=== PATIENT | male | born 1975 | race Caucasian/White ===

== ENCOUNTER → 2017-12-10 | Outpatient (CLI) | payer MEDICARE, MEDICAID | LOC: M RAD 08:30 | DX: M25.475 Effusion, left foot (principal) | CPT/HCPCS: 78315 ==

== ENCOUNTER → 2017-12-23 | Outpatient (REF) | payer MEDICARE, MEDICAID ==
[2017-12-23 16:10] LABS: ALBUMIN 4.2 GM/DL (3.2-5.2); ALBUMIN/GLOBULIN RATIO 1.11 (1.00-1.93); ALKALINE PHOSPHATASE 127 U/L (45-117); ALT/SGPT 22 U/L (12-78); ANION GAP 6 MEQ/L (8-16); AST/SGOT 15 U/L (7-37); BILIRUBIN,TOTAL 0.4 MG/DL (0.2-1.0); BLOOD UREA NITROGEN 15 MG/DL (7-18); C REACTIVE PROTEIN QUANTITATIV 1.27 MG/DL (0.00-0.30); CALCIUM LEVEL 9.3 MG/DL (8.5-10.1); CARBON DIOXIDE LEVEL 30 MEQ/L (21-32); CHLORIDE LEVEL 102 MEQ/L (98-107); CREATININE FOR GFR 0.81 MG/DL (0.70-1.30); GLOMERULAR FILTRATION RATE > 60.0 (>60); GLUCOSE, FASTING 108 MG/DL (70-100); POTASSIUM SERUM 4.2 MEQ/L (3.5-5.1); SODIUM LEVEL 138 MEQ/L (136-145)
[2017-12-23 18:53] LABS: BASO % 0.1 % (0.0-1.0); EOS # 0.2 10^3/uL (0.0-0.50); EOS % 2.6 % (0.0-3.0); HEMATOCRIT 41.1 % (42.0-52.0); HEMOGLOBIN 13.6 g/dl (13.5-17.5); IMMATURE GRANULOCYTE % 0.5 % (0-3.0); LYMPH # 1.9 10^3/uL (1.5-4.5); LYMPH % 21.1 % (24.0-44.0); MEAN CORPUSCULAR HGB CONC 33.1 g/dl (32.0-36.5); MEAN CORPUSCULAR VOLUME 81.5 fl (80.0-96.0); MONO # 0.5 10^3/uL (0.0-0.8); MONO % 5.4 % (0.0-5.0); NEUTROPHILS # 6.4 10^3/uL (1.8-7.7); NEUTROPHILS % 70.3 % (36.0-66.0); PLATELET COUNT, AUTOMATED 290 10^3/uL (150-450); RED BLOOD COUNT 5.04 10^6/uL (4.30-6.10); RED CELL DISTRIBUTION WIDTH 13.2 % (11.5-14.5); WHITE BLOOD COUNT 9.1 10^3/uL (4.0-10.0)
[2017-12-23 19:46] LABS: ERYTHROCYTE SEDIMENTATION RATE 20 mm/hr (0-15)
[2017-12-26 00:06] LABS: Lyme Disease IgG/IgM Antibodie <0.91 ISR (0.00-0.90); Lyme Disease IgM Ab Quantitati <0.80 index (0.00-0.79)
== END ==
LOC: M SFHCPLAZ 12:23
DX: M86.671 Other chronic osteomyelitis, right ankle and foot (principal)
CPT/HCPCS: 80053

== ENCOUNTER → 2018-01-02 | Outpatient (CLI) | payer MEDICARE, MEDICAID | LOC: M RAD 12:38 | DX: M25.475 Effusion, left foot (principal); S92.252A Displaced fracture of navicular [scaphoid] of left foot, initial encounter for closed fracture; S92.212A Displaced fracture of cuboid bone of left foot, initial encounter for closed fracture; M77.32 Calcaneal spur, left foot; X58.XXXA Exposure to other specified factors, initial encounter; Y92.9 Unspecified place or not applicable | CPT/HCPCS: 73700 ==

== ENCOUNTER 2023-02-24 17:27 | Inpatient (IN) | payer MEDICAID, MEDICARE, OTHER ==
[~2023-02-24] VITALS: Ht 180.3 cm; Wt 105.6 kg
[2023-02-24] MEDS ORDERED: DOXY100T27 PO (17:41)
[2023-02-24] MEDS ORDERED: OMEP40CA5 PO (17:41)
[2023-02-24] MEDS ORDERED: GABA-282 PO (17:41)
[2023-02-24] MEDS ORDERED: BASA100I INJ (17:41)
[2023-02-24] MEDS ORDERED: CEFP200T PO (17:41)
[2023-02-24] MEDS ORDERED: OXYC10TA12 PO (17:41)
[2023-02-24] MEDS ORDERED: LISI40TA4 PO (17:41)
[2023-02-24] MEDS ORDERED: HYDR-4517 PO (17:41)
[2023-02-24] MEDS ORDERED: METF500T13 PO (17:41)
[2023-02-24] MEDS ORDERED: ACETAMINOPHEN 325 MG TAB PO ONE (17:55)
[2023-02-24 18:22] LABS: BASO % 0.1 % (0.0-1.0); EOS % 0.5 % (0.0-3.0); HEMATOCRIT 31.5 % (42.0-52.0); HEMOGLOBIN 10.4 g/dl (13.5-17.5); LYMPH # 0.4 10^3/uL (1.5-5.0); LYMPH % 5.5 % (24.0-44.0); MEAN CORPUSCULAR HEMOGLOBIN 26.6 pg (27.0-33.0); MEAN CORPUSCULAR VOLUME 80.6 fl (80.0-96.0); MONO # 0.2 10^3/uL (0.0-0.8); NEUTROPHILS # 7.2 10^3/uL (1.5-8.5); NEUTROPHILS % 90.3 % (36.0-66.0); PLATELET COUNT, AUTOMATED 206 10^3/uL (150-450); RED BLOOD COUNT 3.91 10^6/uL (4.30-6.10)
[2023-02-24 18:45] LABS: ALBUMIN 2.3 G/DL (3.2-5.2); ALKALINE PHOSPHATASE 79 U/L (46-116); ALT/SGPT < 9 U/L (7.0-40); AST/SGOT 12 U/L (<34); BILIRUBIN,TOTAL 0.6 MG/DL (0.3-1.2); BLOOD UREA NITROGEN 8 MG/DL (9-23); CALCIUM LEVEL 8.3 MG/DL (8.5-10.1); CARBON DIOXIDE LEVEL 26 MMOL/L (20-31); CHLORIDE LEVEL 99 MMOL/L (98-107); CREATININE FOR GFR 0.72 MG/DL (0.70-1.30); GLOMERULAR FILTRATION RATE > 60.0 (>60); GLUCOSE, FASTING 138 MG/DL (60-100); POTASSIUM SERUM 3.2 MMOL/L (3.5-5.1); SODIUM LEVEL 134 MMOL/L (136-145)
[2023-02-24 18:58] LABS: RSV AMPLIFICATION NEGATIVE (NEGATIVE)
[2023-02-24 19:10] LABS: ERYTHROCYTE SEDIMENTATION RATE 71 mm/hr (0-15)
[2023-02-24] MEDS ORDERED: NS 3,000 ML in IV 1 EA IV ONE (19:50)
[2023-02-24] MEDS ORDERED: IBUPROFEN 800 MG TAB PO ONE (19:50)
[2023-02-24] MEDS ORDERED: cefTRIAXone SOD 1 GM in D5W MINI-BAG PLUS 50 ML IV ONE (19:50)
[2023-02-24] MEDS ORDERED: GABAPENTIN 300 MG CAP PO ONE (20:00)
[2023-02-24] MEDS ORDERED: MORPHINE 4 MG/ML 1ML VIAL IV ONE (20:00)
[2023-02-24] MEDS ORDERED: VANCOMYCIN HCL 2,000 MG in D5W 500 ML IV ONE (20:20)
[2023-02-24] MEDS ORDERED: VANCOMYCIN HCL 1,000 MG, VIAL MATE ADAPTER 1 EACH in D5W 250 ML IV ONE ×2 (21:00→22:00)
[2023-02-24] MEDS ORDERED: HOME MED LIST COMPLETE! XX SCH (21:10)
[2023-02-24] MEDS ORDERED: NS 1,000 ML IV ONE (23:25)
[2023-02-24] MEDS ORDERED: GLUCOSE 4GM CHEW TABLET PO PRN (23:30)
[2023-02-24] MEDS ORDERED: ACETAMINOPHEN TAB 650MG DOSE (2X325MG) PO PRN (23:30)
[2023-02-24] MEDS ORDERED: ONDANSETRON 4MG ORAL DISINTEGRATING TAB PO PRN (23:30)
[2023-02-24] MEDS ORDERED: GLUCAGON INJ 1MG VIAL SC PRN (23:30)
[2023-02-24] MEDS ORDERED: DEXTROSE 50% 50ML SYRINGE IV PRN (23:30)
[2023-02-25] MEDS ORDERED: POTASSIUM CHLORIDE 10% LIQ 20MEQ/15ML UDC PO ONE
[2023-02-25] MEDS ORDERED: NS 1,000 ML IV ONE (00:25)
[2023-02-25] MEDS ORDERED: LORazepam 2 MG TAB PO PRN (01:40)
[2023-02-25] MEDS ORDERED: PIPERACILLIN/TAZOBACTAM SOD 4.5 GM in D5W MINI-BAG PLUS 50 ML IV SCH (02:00)
[2023-02-25] MEDS: PIPERACILLIN/TAZOBACTAM SOD 3.375 GM in D5W MINI-BAG PLUS 50 ML IV SCH ×4 (02:38→20:01)
[2023-02-25] MEDS: THIAMINE 100 MG TAB PO SCH ×3 (02:38→20:00)
[2023-02-25] MEDS: NORCO, ANEXSIA 5/325MG TABLET (HYDROcodone/ACETAMINOPHEN) PO PRN ×3 (02:41→22:59)
[2023-02-25] MEDS: VANCOMYCIN HCL 1,000 MG, VIAL MATE ADAPTER 1 EACH in NS 250 ML IV SCH ×3 (05:32→21:27)
[2023-02-25] MEDS: HEPARIN SOD (PORCINE) 5000UNITS/ML 1ML VIAL/SYRINGE SC SCH ×3 (06:41→21:23)
[2023-02-25 07:23] LABS: BLOOD UREA NITROGEN 8 MG/DL (9-23); CALCIUM LEVEL 7.8 MG/DL (8.5-10.1); CARBON DIOXIDE LEVEL 21 MMOL/L (20-31); CHLORIDE LEVEL 106 MMOL/L (98-107); CREATININE FOR GFR 0.63 MG/DL (0.70-1.30); GLOMERULAR FILTRATION RATE > 60.0 (>60); GLUCOSE, FASTING 82 MG/DL (60-100); POTASSIUM SERUM 3.9 MMOL/L (3.5-5.1); SODIUM LEVEL 139 MMOL/L (136-145)
[2023-02-25] MEDS: INSULIN LISPRO (NovoLOG) PER UNIT SC SCH ×3 (07:30→17:30)
[2023-02-25] MEDS: MULTIVITAMINS/MINERALS THERAP 1 TAB PO SCH (07:54)
[2023-02-25] MEDS: LEVEMIR (INSULIN DETEMIR) 1 UNITS/0.01ML SC SCH (07:54)
[2023-02-25] MEDS: OMEPRAZOLE 20MG CAP PO SCH (07:54)
[2023-02-25] MEDS: GABAPENTIN 300 MG CAP PO SCH ×3 (07:54→20:00)
[2023-02-25] MEDS: FOLIC ACID 1MG TAB PO SCH (07:54)
[2023-02-25 15:56] VITALS: BP 128/87; TEMP 97.4; O2SAT 100
[2023-02-25] MEDS ORDERED: KETOROLAC 30 MG/ML 1ML VIAL IV ONE (16:25)
[2023-02-25] MEDS ORDERED: NORCO, ANEXSIA 5/325MG TABLET (HYDROcodone/ACETAMINOPHEN) PO PRN (16:25)
[2023-02-25] MEDS ORDERED: NALOXONE INJ 0.4MG/1ML VIAL IV PRN (16:25)
[2023-02-25] MEDS ORDERED: SENOKOT S TAB PO PRN (16:25)
[2023-02-25] MEDS ORDERED: INSULIN LISPRO (NovoLOG) PER UNIT SC SCH (21:00)
[2023-02-25 22:00] VITALS: BP 126/65; TEMP 98.6; O2SAT 97
[2023-02-26] MEDS: PIPERACILLIN/TAZOBACTAM SOD 3.375 GM in D5W MINI-BAG PLUS 50 ML IV SCH ×3 (01:10→13:55)
[2023-02-26] MEDS: VANCOMYCIN HCL 1,000 MG, VIAL MATE ADAPTER 1 EACH in NS 250 ML IV SCH ×2 (04:21→12:49)
[2023-02-26] MEDS: HEPARIN SOD (PORCINE) 5000UNITS/ML 1ML VIAL/SYRINGE SC SCH ×2 (05:01→13:42)
[2023-02-26] MEDS: NORCO, ANEXSIA 5/325MG TABLET (HYDROcodone/ACETAMINOPHEN) PO PRN ×2 (05:01→13:11)
[2023-02-26 05:15] VITALS: BP 128/80; TEMP 98.9; O2SAT 96
[2023-02-26 06:29] LABS: BASO % 0.1 % (0.0-1.0); EOS # 0.2 10^3/uL (0.0-0.5); EOS % 2.6 % (0.0-3.0); HEMATOCRIT 27.7 % (42.0-52.0); HEMOGLOBIN 9.1 g/dl (13.5-17.5); LYMPH # 1.4 10^3/uL (1.5-5.0); LYMPH % 18.3 % (24.0-44.0); MEAN CORPUSCULAR HEMOGLOBIN 26.2 pg (27.0-33.0); MEAN CORPUSCULAR HGB CONC 32.9 g/dl (32.0-36.5); MEAN CORPUSCULAR VOLUME 79.8 fl (80.0-96.0); MONO # 0.3 10^3/uL (0.0-0.8); MONO % 4.2 % (2.0-8.0); NEUTROPHILS # 5.7 10^3/uL (1.5-8.5); NEUTROPHILS % 74.3 % (36.0-66.0); PLATELET COUNT, AUTOMATED 200 10^3/uL (150-450); RED BLOOD COUNT 3.47 10^6/uL (4.30-6.10); WHITE BLOOD COUNT 7.7 10^3/uL (4.0-10.0)
[2023-02-26 06:51] LABS: BLOOD UREA NITROGEN 12 MG/DL (9-23); CALCIUM LEVEL 7.5 MG/DL (8.5-10.1); CARBON DIOXIDE LEVEL 23 MMOL/L (20-31); CHLORIDE LEVEL 107 MMOL/L (98-107); CREATININE FOR GFR 0.73 MG/DL (0.70-1.30); GLOMERULAR FILTRATION RATE > 60.0 (>60); GLUCOSE, FASTING 131 MG/DL (60-100); POTASSIUM SERUM 3.7 MMOL/L (3.5-5.1); SODIUM LEVEL 139 MMOL/L (136-145)
[2023-02-26] MEDS: INSULIN LISPRO (NovoLOG) PER UNIT SC SCH ×3 (07:25→17:08)
[2023-02-26 07:35] LABS: HEMOGLOBIN A1c 6.1 % (4.0-6.0)
[2023-02-26] MEDS: LEVEMIR (INSULIN DETEMIR) 1 UNITS/0.01ML SC SCH (07:37)
[2023-02-26] MEDS: GABAPENTIN 300 MG CAP PO SCH ×2 (08:25→15:52)
[2023-02-26] MEDS: OMEPRAZOLE 20MG CAP PO SCH (08:25)
[2023-02-26] MEDS: THIAMINE 100 MG TAB PO SCH (08:25)
[2023-02-26] MEDS: MULTIVITAMINS/MINERALS THERAP 1 TAB PO SCH (08:25)
[2023-02-26] MEDS: FOLIC ACID 1MG TAB PO SCH (08:25)
[2023-02-26] MEDS ORDERED: SENN-52 PO (11:00)
[2023-02-26] MEDS ORDERED: HYDR-4517 PO (11:00)
[2023-02-26] MEDS ORDERED: BACT800T5 PO (11:00)
[2023-02-26 14:00] VITALS: BP 153/98; TEMP 98.2; O2SAT 98
== END 2023-02-26 19:30 | disposition home or self-care (01) | DRG 574 ==
LOC: M ED 17:27 → M ED INP 23:25 → EEVIPCON 23:25 → ENRESERV 02-25 14:31 → M MSPAV 02-25 15:50
PROVIDERS: ADMIT Internal Medicine; ATTEND Family Medicine
PROC: 0YBN0ZZ Excision of Left Foot, Open Approach (ICD-10-PCS; principal; 2023-02-25)
DX: L03.116 Cellulitis of left lower limb (principal); E87.1 Hypo-osmolality and hyponatremia; A52.16 Charcot's arthropathy (tabetic); E11.621 Type 2 diabetes mellitus with foot ulcer; L97.529 Non-pressure chronic ulcer of other part of left foot with unspecified severity; E87.6 Hypokalemia; D63.8 Anemia in other chronic diseases classified elsewhere; E11.42 Type 2 diabetes mellitus with diabetic polyneuropathy; K21.9 Gastro-esophageal reflux disease without esophagitis; Z88.8 Allergy status to other drugs, medicaments and biological substances; Z79.899 Other long term (current) drug therapy; Z79.4 Long term (current) use of insulin; Z91.119 Patient's noncompliance with dietary regimen due to unspecified reason; E11.618 Type 2 diabetes mellitus with other diabetic arthropathy

== ENCOUNTER 2023-02-28 11:11 | Inpatient (IN) | payer MEDICARE ==
[~2023-02-28] VITALS: Ht 180.3 cm; Wt 102.7 kg
[~2023-02-28 11:11] MED LIST: BACT800T5 PO; BASA100I INJ; CEFP200T PO; DOXY100T27 PO; GABA-282 PO; HYDR-4517 PO; LISI40TA4 PO; METF500T13 PO; OMEP40CA5 PO; OXYC10TA12 PO; SENN-52 PO
[2023-02-28 14:45] VITALS: BP 142/83; TEMP 97.3; O2SAT 99
[2023-02-28] MEDS ORDERED: ACETAMINOPHEN TAB 650MG DOSE (2X325MG) PO PRN (15:10)
[2023-02-28] MEDS ORDERED: VANCOMYCIN HCL 750 MG, VIAL MATE ADAPTER 1 EACH in D5W 250 ML IV SCH (15:10)
[2023-02-28] MEDS ORDERED: GLUCOSE 4GM CHEW TABLET PO PRN (15:30)
[2023-02-28] MEDS ORDERED: GLUCAGON INJ 1MG VIAL SC PRN (15:30)
[2023-02-28] MEDS ORDERED: DEXTROSE 50% 50ML SYRINGE IV PRN (15:30)
[2023-02-28 15:55] LABS: HEMATOCRIT 32.9 % (42.0-52.0); HEMOGLOBIN 10.6 g/dl (13.5-17.5); MEAN CORPUSCULAR HEMOGLOBIN 26.4 pg (27.0-33.0); MEAN CORPUSCULAR HGB CONC 32.2 g/dl (32.0-36.5); MEAN CORPUSCULAR VOLUME 81.8 fl (80.0-96.0); PLATELET COUNT, AUTOMATED 294 10^3/uL (150-450); RED BLOOD COUNT 4.02 10^6/uL (4.30-6.10); WHITE BLOOD COUNT 8.7 10^3/uL (4.0-10.0)
[2023-02-28] MEDS ORDERED: VANCOMYCIN HCL 1,000 MG, VIAL MATE ADAPTER 1 EACH in D5W 250 ML IV ONE ×2 (16:00→17:00)
[2023-02-28] MEDS ORDERED: HYDR-4517 PO (16:14)
[2023-02-28] MEDS ORDERED: LISI40TA4 PO (16:16)
[2023-02-28] MEDS ORDERED: VITMTA PO (16:16)
[2023-02-28 16:19] LABS: BLOOD UREA NITROGEN 6 MG/DL (9-23); CALCIUM LEVEL 8.2 MG/DL (8.5-10.1); CARBON DIOXIDE LEVEL 30 MMOL/L (20-31); CHLORIDE LEVEL 100 MMOL/L (98-107); CREATININE FOR GFR 0.66 MG/DL (0.70-1.30); GLOMERULAR FILTRATION RATE > 60.0 (>60); GLUCOSE, FASTING 81 MG/DL (60-100); POTASSIUM SERUM 3.7 MMOL/L (3.5-5.1); SODIUM LEVEL 137 MMOL/L (136-145)
[2023-02-28] MEDS ORDERED: HOME MED LIST COMPLETE! XX SCH (16:20)
[2023-02-28 16:25] LABS: PROCALCITONIN 0.71 ng/ml
[2023-02-28] MEDS: LEVEMIR (INSULIN DETEMIR) 1 UNITS/0.01ML SC SCH (16:30)
[2023-02-28] MEDS: INSULIN LISPRO (NovoLOG) PER UNIT SC SCH ×2 (17:06→21:00)
[2023-02-28] MEDS: GABAPENTIN 300 MG CAP PO SCH ×2 (17:07→22:02)
[2023-02-28] MEDS: oxyCODONE 5MG TAB PO PRN (17:08)
[2023-02-28 20:00] VITALS: BP 109/56; TEMP 97.9; O2SAT 94
[2023-02-28] MEDS: ANEXSIA, NORCO 7.5MG/325MG TABLET(HYDROCODONE/APAP) PO PRN (20:15)
[2023-02-28] MEDS: HEPARIN SOD (PORCINE) 5000UNITS/ML 1ML VIAL/SYRINGE SC SCH (22:02)
[2023-03-01] MEDS: oxyCODONE 5MG TAB PO PRN ×4 (01:30→23:12)
[2023-03-01] MEDS: VANCOMYCIN HCL 1,000 MG, VIAL MATE ADAPTER 1 EACH in D5W 250 ML IV SCH ×3 (01:39→17:06)
[2023-03-01] MEDS: HEPARIN SOD (PORCINE) 5000UNITS/ML 1ML VIAL/SYRINGE SC SCH ×3 (05:15→21:53)
[2023-03-01] MEDS: ANEXSIA, NORCO 7.5MG/325MG TABLET(HYDROCODONE/APAP) PO PRN ×4 (05:15→20:07)
[2023-03-01 06:00] VITALS: BP 112/66; TEMP 98.1; O2SAT 92
[2023-03-01 06:05] LABS: HEMATOCRIT 31.6 % (42.0-52.0); HEMOGLOBIN 10.1 g/dl (13.5-17.5); MEAN CORPUSCULAR HEMOGLOBIN 26.2 pg (27.0-33.0); MEAN CORPUSCULAR VOLUME 81.9 fl (80.0-96.0); PLATELET COUNT, AUTOMATED 316 10^3/uL (150-450); RED BLOOD COUNT 3.86 10^6/uL (4.30-6.10); WHITE BLOOD COUNT 9.7 10^3/uL (4.0-10.0)
[2023-03-01 06:41] LABS: BLOOD UREA NITROGEN 7 MG/DL (9-23); CARBON DIOXIDE LEVEL 27 MMOL/L (20-31); CHLORIDE LEVEL 104 MMOL/L (98-107); CREATININE FOR GFR 0.76 MG/DL (0.70-1.30); GLOMERULAR FILTRATION RATE > 60.0 (>60); GLUCOSE, FASTING 114 MG/DL (60-100); MAGNESIUM LEVEL 1.6 MG/DL (1.8-2.4); POTASSIUM SERUM 4.2 MMOL/L (3.5-5.1); SODIUM LEVEL 139 MMOL/L (136-145)
[2023-03-01] MEDS: INSULIN LISPRO (NovoLOG) PER UNIT SC SCH ×4 (07:30→20:35)
[2023-03-01] MEDS ORDERED: MAGNESIUM OXIDE 400MG TAB (MAG-OX) PO ONE (07:30)
[2023-03-01] MEDS: SENOKOT S TAB PO SCH (08:33)
[2023-03-01] MEDS: GABAPENTIN 300 MG CAP PO SCH ×3 (08:33→21:53)
[2023-03-01] MEDS: OMEPRAZOLE 20MG CAP PO SCH (08:33)
[2023-03-01] MEDS: LEVEMIR (INSULIN DETEMIR) 1 UNITS/0.01ML SC SCH (13:22)
[2023-03-01 14:00] VITALS: BP 151/83; TEMP 97.3; O2SAT 98
[2023-03-01 20:22] VITALS: BP 144/77; TEMP 97.9; O2SAT 96
[2023-03-02] MEDS: ANEXSIA, NORCO 7.5MG/325MG TABLET(HYDROCODONE/APAP) PO PRN ×4 (00:13→21:43)
[2023-03-02] MEDS: VANCOMYCIN HCL 1,000 MG, VIAL MATE ADAPTER 1 EACH in D5W 250 ML IV SCH (01:54)
[2023-03-02 05:20] VITALS: BP 152/88; TEMP 97.7; O2SAT 97
[2023-03-02] MEDS: HEPARIN SOD (PORCINE) 5000UNITS/ML 1ML VIAL/SYRINGE SC SCH ×3 (05:26→21:42)
[2023-03-02] MEDS: oxyCODONE 5MG TAB PO PRN ×3 (05:27→20:05)
[2023-03-02 06:52] LABS: BASO % 0.2 % (0.0-1.0); EOS # 0.4 10^3/uL (0.0-0.5); HEMATOCRIT 32.1 % (42.0-52.0); HEMOGLOBIN 10.2 g/dl (13.5-17.5); LYMPH # 3.1 10^3/uL (1.5-5.0); LYMPH % 30.5 % (24.0-44.0); MEAN CORPUSCULAR HEMOGLOBIN 26.3 pg (27.0-33.0); MEAN CORPUSCULAR HGB CONC 31.8 g/dl (32.0-36.5); MEAN CORPUSCULAR VOLUME 82.7 fl (80.0-96.0); MONO # 0.6 10^3/uL (0.0-0.8); MONO % 5.8 % (2.0-8.0); NEUTROPHILS % 58.4 % (36.0-66.0); PLATELET COUNT, AUTOMATED 340 10^3/uL (150-450); RED BLOOD COUNT 3.88 10^6/uL (4.30-6.10); WHITE BLOOD COUNT 10.2 10^3/uL (4.0-10.0)
[2023-03-02 07:12] LABS: BLOOD UREA NITROGEN 9 MG/DL (9-23); CALCIUM LEVEL 8.5 MG/DL (8.5-10.1); CARBON DIOXIDE LEVEL 28 MMOL/L (20-31); CHLORIDE LEVEL 104 MMOL/L (98-107); CREATININE FOR GFR 0.73 MG/DL (0.70-1.30); GLOMERULAR FILTRATION RATE > 60.0 (>60); GLUCOSE, FASTING 107 MG/DL (60-100); MAGNESIUM LEVEL 1.7 MG/DL (1.8-2.4); POTASSIUM SERUM 4.4 MMOL/L (3.5-5.1); SODIUM LEVEL 138 MMOL/L (136-145)
[2023-03-02] MEDS ORDERED: MAGNESIUM OXIDE 400MG TAB (MAG-OX) PO ONE (08:00)
[2023-03-02] MEDS: INSULIN LISPRO (NovoLOG) PER UNIT SC SCH ×4 (08:00→21:00)
[2023-03-02] MEDS: SENOKOT S TAB PO SCH (08:02)
[2023-03-02] MEDS: OMEPRAZOLE 20MG CAP PO SCH (08:03)
[2023-03-02] MEDS: GABAPENTIN 300 MG CAP PO SCH ×3 (08:03→21:45)
[2023-03-02 14:00] VITALS: BP 148/86; TEMP 97; O2SAT 97
[2023-03-02] MEDS: VANCOMYCIN HCL 750 MG, VIAL MATE ADAPTER 1 EACH in D5W 250 ML IV SCH ×2 (14:08→15:09)
[2023-03-02] MEDS: LEVEMIR (INSULIN DETEMIR) 1 UNITS/0.01ML SC SCH (14:08)
[2023-03-02 21:22] VITALS: BP 165/85; TEMP 97.9; O2SAT 100
[2023-03-03] MEDS: VANCOMYCIN HCL 750 MG, VIAL MATE ADAPTER 1 EACH in D5W 250 ML IV SCH ×4 (02:14→15:17)
[2023-03-03] MEDS: oxyCODONE 5MG TAB PO PRN ×3 (02:17→19:48)
[2023-03-03] MEDS: ANEXSIA, NORCO 7.5MG/325MG TABLET(HYDROCODONE/APAP) PO PRN ×4 (03:46→22:12)
[2023-03-03 05:04] VITALS: BP 129/82; TEMP 97.7; O2SAT 97
[2023-03-03] MEDS: HEPARIN SOD (PORCINE) 5000UNITS/ML 1ML VIAL/SYRINGE SC SCH ×3 (05:48→21:45)
[2023-03-03 06:29] LABS: BASO % 0.3 % (0.0-1.0); EOS # 0.5 10^3/uL (0.0-0.5); EOS % 4.5 % (0.0-3.0); HEMATOCRIT 33.7 % (42.0-52.0); HEMOGLOBIN 10.7 g/dl (13.5-17.5); LYMPH # 3.6 10^3/uL (1.5-5.0); MEAN CORPUSCULAR HGB CONC 31.8 g/dl (32.0-36.5); MONO # 0.5 10^3/uL (0.0-0.8); NEUTROPHILS # 5.8 10^3/uL (1.5-8.5); NEUTROPHILS % 54.4 % (36.0-66.0); PLATELET COUNT, AUTOMATED 385 10^3/uL (150-450); RED BLOOD COUNT 4.11 10^6/uL (4.30-6.10); WHITE BLOOD COUNT 10.6 10^3/uL (4.0-10.0)
[2023-03-03 06:48] LABS: BLOOD UREA NITROGEN 10 MG/DL (9-23); CALCIUM LEVEL 8.6 MG/DL (8.5-10.1); CARBON DIOXIDE LEVEL 29 MMOL/L (20-31); CHLORIDE LEVEL 101 MMOL/L (98-107); CREATININE FOR GFR 0.76 MG/DL (0.70-1.30); GLOMERULAR FILTRATION RATE > 60.0 (>60); GLUCOSE, FASTING 119 MG/DL (60-100); MAGNESIUM LEVEL 1.9 MG/DL (1.8-2.4); POTASSIUM SERUM 4.5 MMOL/L (3.5-5.1); SODIUM LEVEL 138 MMOL/L (136-145)
[2023-03-03] MEDS: OMEPRAZOLE 20MG CAP PO SCH (07:57)
[2023-03-03] MEDS: GABAPENTIN 300 MG CAP PO SCH ×3 (07:57→21:45)
[2023-03-03] MEDS: SENOKOT S TAB PO SCH (07:57)
[2023-03-03] MEDS: INSULIN LISPRO (NovoLOG) PER UNIT SC SCH ×4 (07:58→21:00)
[2023-03-03 14:00] VITALS: BP 135/83; TEMP 97.7; O2SAT 96
[2023-03-03] MEDS: LEVEMIR (INSULIN DETEMIR) 1 UNITS/0.01ML SC SCH (14:11)
[2023-03-03 21:06] VITALS: BP 142/87; TEMP 97.9; O2SAT 99
[2023-03-04 02:00] VITALS: BP 137/82; TEMP 97.9; O2SAT 98
[2023-03-04] MEDS: VANCOMYCIN HCL 750 MG, VIAL MATE ADAPTER 1 EACH in D5W 250 ML IV SCH ×4 (02:12→13:56)
[2023-03-04] MEDS: ANEXSIA, NORCO 7.5MG/325MG TABLET(HYDROCODONE/APAP) PO PRN ×3 (03:12→13:08)
[2023-03-04] MEDS: oxyCODONE 5MG TAB PO PRN ×2 (04:28→12:02)
[2023-03-04 05:17] VITALS: BP 137/82; TEMP 99; O2SAT 98
[2023-03-04] MEDS: HEPARIN SOD (PORCINE) 5000UNITS/ML 1ML VIAL/SYRINGE SC SCH ×2 (05:22→14:00)
[2023-03-04 05:43] LABS: HEMATOCRIT 35.4 % (42.0-52.0); HEMOGLOBIN 11.3 g/dl (13.5-17.5); MEAN CORPUSCULAR HEMOGLOBIN 26.3 pg (27.0-33.0); MEAN CORPUSCULAR HGB CONC 31.9 g/dl (32.0-36.5); MEAN CORPUSCULAR VOLUME 82.5 fl (80.0-96.0); PLATELET COUNT, AUTOMATED 382 10^3/uL (150-450); RED BLOOD COUNT 4.29 10^6/uL (4.30-6.10); WHITE BLOOD COUNT 11.3 10^3/uL (4.0-10.0)
[2023-03-04 06:03] LABS: ANISOCYTOSIS 1+; EOSINOPHILS 3 % (0-3); LYMPHOCYTES 35 % (16-44); MONOCYTES 5 % (0-5); NEUTROPHILS 57 % (28-66); PLATELET ESTIMATE NORMAL (NORMAL)
[2023-03-04 06:04] LABS: HYPERSEGMENTED POLYS 1+
[2023-03-04 06:06] LABS: BLOOD UREA NITROGEN 12 MG/DL (9-23); CALCIUM LEVEL 8.6 MG/DL (8.5-10.1); CARBON DIOXIDE LEVEL 28 MMOL/L (20-31); CHLORIDE LEVEL 101 MMOL/L (98-107); CREATININE FOR GFR 0.75 MG/DL (0.70-1.30); GLOMERULAR FILTRATION RATE > 60.0 (>60); GLUCOSE, FASTING 130 MG/DL (60-100); MAGNESIUM LEVEL 1.9 MG/DL (1.8-2.4); POTASSIUM SERUM 4.2 MMOL/L (3.5-5.1); SODIUM LEVEL 136 MMOL/L (136-145)
[2023-03-04] MEDS: OMEPRAZOLE 20MG CAP PO SCH (08:03)
[2023-03-04] MEDS: SENOKOT S TAB PO SCH (08:03)
[2023-03-04] MEDS: GABAPENTIN 300 MG CAP PO SCH (08:03)
[2023-03-04] MEDS: INSULIN LISPRO (NovoLOG) PER UNIT SC SCH ×2 (08:03→11:59)
[2023-03-04] MEDS ORDERED: VANC750P8 IV ×2 (09:08→13:01)
[2023-03-04 09:24] LABS: PROCALCITONIN 0.12 ng/ml
[2023-03-04 10:23] VITALS: BP 150/80; TEMP 98.2; O2SAT 98
[2023-03-04] MEDS ORDERED: LIDOCAINE 1% MDV 20ML VIAL As Ordered ONE (10:23)
[2023-03-04] MEDS ORDERED: ISOVUE-300 61% 100ML VIAL As Ordered ONE (10:58)
[2023-03-04] MEDS ORDERED: BACI1CAP PO (10:58)
[2023-03-04] MEDS ORDERED: SODIUM CHLORIDE 0.9% INJ 10 ML SYR IV PRN (13:00)
[2023-03-04] MEDS: LEVEMIR (INSULIN DETEMIR) 1 UNITS/0.01ML SC SCH (13:56)
[2023-03-04] MEDS ORDERED: SODIUM CHLORIDE 0.9% INJ 10 ML SYR IV SCH (18:00)
== END 2023-03-04 16:30 | disposition home health service (06) | DRG 638 ==
LOC: M MSPAV 14:31
PROVIDERS: ADMIT Family Medicine; ATTEND General Practice
PROC: B246ZZZ Ultrasonography of Right and Left Heart (ICD-10-PCS; 2023-03-02)
PROC: 02HV33Z Insertion of Infusion Device into Superior Vena Cava, Percutaneous Approach (ICD-10-PCS; principal; 2023-03-04 15:00)
DX: E11.621 Type 2 diabetes mellitus with foot ulcer (principal); R78.81 Bacteremia; L03.116 Cellulitis of left lower limb; B95.62 Methicillin resistant Staphylococcus aureus infection as the cause of diseases classified elsewhere; E11.42 Type 2 diabetes mellitus with diabetic polyneuropathy; E66.9 Obesity, unspecified; Z68.31 Body mass index [BMI] 31.0-31.9, adult; L97.529 Non-pressure chronic ulcer of other part of left foot with unspecified severity; Z79.4 Long term (current) use of insulin; Z79.84 Long term (current) use of oral hypoglycemic drugs; Z79.899 Other long term (current) drug therapy; Z88.1 Allergy status to other antibiotic agents

== ENCOUNTER → 2023-04-19 | Outpatient (REF) | payer MEDICARE ==
[~2023-04-19] MED LIST changes: +BACI1CAP PO; +VANC750P8 IV; +VITMTA PO
== END ==
LOC: M LAB REF 16:39
PROVIDERS: ATTEND Podiatrist Foot & Ankle Surgery
DX: L03.116 Cellulitis of left lower limb (principal)

== ENCOUNTER 2023-05-31 19:04 | Inpatient (IN) | payer MEDICARE ==
[~2023-05-31] VITALS: Ht 180.3 cm; Wt 93.5 kg
[2023-05-31 20:40] LABS: BASO % 0.1 % (0.0-1.0); EOS # 0.3 10^3/uL (0.0-0.5); HEMATOCRIT 23.6 % (42.0-52.0); HEMOGLOBIN 7.2 g/dl (13.5-17.5); LYMPH # 1.9 10^3/uL (1.5-5.0); LYMPH % 22.5 % (24.0-44.0); MEAN CORPUSCULAR HEMOGLOBIN 22.5 pg (27.0-33.0); MEAN CORPUSCULAR HGB CONC 30.5 g/dl (32.0-36.5); MEAN CORPUSCULAR VOLUME 73.8 fl (80.0-96.0); MONO # 0.6 10^3/uL (0.0-0.8); MONO % 6.6 % (2.0-8.0); NEUTROPHILS # 5.7 10^3/uL (1.5-8.5); NEUTROPHILS % 67.6 % (36.0-66.0); PLATELET COUNT, AUTOMATED 502 10^3/uL (150-450); WHITE BLOOD COUNT 8.4 10^3/uL (4.0-10.0)
[2023-05-31 21:00] LABS: ERYTHROCYTE SEDIMENTATION RATE > 130 mm/hr (0-15)
[2023-05-31] MEDS: oxyCODONE 5MG TAB PO SCH (21:00)
[2023-05-31] MEDS ORDERED: VANCOMYCIN HCL 1,750 MG in NS 250 ML IV ONE (21:05)
[2023-05-31] MEDS ORDERED: MORPHINE 4 MG/ML 1ML VIAL IV ONE (21:05)
[2023-05-31 21:06] LABS: BLOOD UREA NITROGEN 9 MG/DL (9-23); CALCIUM LEVEL 8.4 MG/DL (8.5-10.1); CARBON DIOXIDE LEVEL 26 MMOL/L (20-31); CHLORIDE LEVEL 99 MMOL/L (98-107); CREATININE FOR GFR 0.62 MG/DL (0.70-1.30); GLOMERULAR FILTRATION RATE > 60.0 (>60); GLUCOSE, FASTING 194 MG/DL (60-100); POTASSIUM SERUM 3.8 MMOL/L (3.5-5.1); SODIUM LEVEL 136 MMOL/L (136-145)
[2023-05-31] MEDS ORDERED: NS 2,590 ML in IV 1 EA IV ONE (21:10)
[2023-05-31] MEDS ORDERED: VANCOMYCIN HCL 750 MG, VIAL MATE ADAPTER 1 EACH in D5W 250 ML IV ONE (21:10)
[2023-05-31] MEDS ORDERED: VANCOMYCIN HCL 1,000 MG, VIAL MATE ADAPTER 1 EACH in D5W 250 ML IV ONE (21:10)
[2023-05-31] MEDS ORDERED: HOME MED LIST COMPLETE! XX SCH (22:40)
[2023-05-31] MEDS ORDERED: ONDANSETRON 4MG 2ML VIAL IV PRN (23:15)
[2023-05-31] MEDS ORDERED: GLUCAGON INJ 1MG VIAL SC PRN (23:15)
[2023-05-31] MEDS ORDERED: ACETAMINOPHEN TAB 650MG DOSE (2X325MG) PO PRN (23:15)
[2023-05-31] MEDS ORDERED: VANCOMYCIN HCL 1,000 MG, VIAL MATE ADAPTER 1 EACH in NS 250 ML IV SCH (23:15)
[2023-05-31] MEDS ORDERED: GLUCOSE 4GM CHEW TABLET PO PRN (23:15)
[2023-05-31] MEDS ORDERED: DEXTROSE 50% 50ML SYRINGE IV PRN (23:15)
[2023-06-01] VITALS (12 sets, daily range): BP systolic 109–145; BP diastolic 63–87; TEMP 97–98.1; O2SAT 94–100
[2023-06-01] MEDS ORDERED: lisinopriL 40MG TAB PO PRN (00:35)
[2023-06-01] MEDS ORDERED: SENOKOT S TAB PO PRN (00:35)
[2023-06-01] MEDS: LR 1,000 ML IV SCH ×2 (00:55→07:15)
[2023-06-01] MEDS: NORCO, ANEXSIA 5/325MG TABLET (HYDROcodone/ACETAMINOPHEN) PO PRN ×5 (00:56→23:50)
[2023-06-01] MEDS: VANCOMYCIN HCL 500 MG in D5W MINI-BAG PLUS 100 ML IV SCH ×4 (03:35→22:12)
[2023-06-01] MEDS: VANCOMYCIN HCL 750 MG, VIAL MATE ADAPTER 1 EACH in D5W 250 ML IV SCH ×4 (04:32→20:14)
[2023-06-01] MEDS: INSULIN LISPRO (NovoLOG) PER UNIT SC SCH ×5 (06:00→20:10)
[2023-06-01] MEDS: oxyCODONE 5MG TAB PO SCH ×3 (08:28→20:10)
[2023-06-01] MEDS: OMEPRAZOLE 20MG CAP PO SCH (08:28)
[2023-06-01] MEDS: GABAPENTIN 300 MG CAP PO SCH ×3 (08:29→20:09)
[2023-06-01 12:31] LABS: BASO % 0.2 % (0.0-1.0); EOS # 0.3 10^3/uL (0.0-0.5); EOS % 5.3 % (0.0-3.0); HEMATOCRIT 26.8 % (42.0-52.0); HEMOGLOBIN 8.1 g/dl (13.5-17.5); LYMPH # 1.6 10^3/uL (1.5-5.0); LYMPH % 25.6 % (24.0-44.0); MEAN CORPUSCULAR HEMOGLOBIN 23.1 pg (27.0-33.0); MEAN CORPUSCULAR HGB CONC 30.2 g/dl (32.0-36.5); MEAN CORPUSCULAR VOLUME 76.6 fl (80.0-96.0); MONO # 0.5 10^3/uL (0.0-0.8); MONO % 7.2 % (2.0-8.0); NEUTROPHILS # 3.8 10^3/uL (1.5-8.5); NEUTROPHILS % 61.4 % (36.0-66.0); PLATELET COUNT, AUTOMATED 472 10^3/uL (150-450); WHITE BLOOD COUNT 6.3 10^3/uL (4.0-10.0)
[2023-06-01 12:52] LABS: ALBUMIN 2.1 G/DL (3.2-5.2); ALKALINE PHOSPHATASE 100 U/L (46-116); ALT/SGPT < 9 U/L (7.0-40); AST/SGOT 22 U/L (<34); BILIRUBIN,TOTAL 0.8 MG/DL (0.3-1.2); BLOOD UREA NITROGEN 7 MG/DL (9-23); CALCIUM LEVEL 8.3 MG/DL (8.5-10.1); CARBON DIOXIDE LEVEL 29 MMOL/L (20-31); CHLORIDE LEVEL 101 MMOL/L (98-107); CREATININE FOR GFR 0.62 MG/DL (0.70-1.30); GLOMERULAR FILTRATION RATE > 60.0 (>60); GLUCOSE, FASTING 149 MG/DL (60-100); IRON (FE) 105 UG/DL (65-175); POTASSIUM SERUM 4.3 MMOL/L (3.5-5.1); SODIUM LEVEL 136 MMOL/L (136-145); TOTAL IRON BINDING CAPACITY 202 UG/DL (250-425); TOTAL PROTEIN 6.3 G/DL (5.7-8.2)
[2023-06-01] MEDS ORDERED: PROHANCE 279.3MG/ML 5ML VIAL As Ordered ONE (12:52)
[2023-06-01] MEDS ORDERED: PROHANCE 279.3MG/ML 15ML VIAL As Ordered ONE (12:52)
[2023-06-01 12:55] LABS: FERRITIN 546.3 NG/ML (10.5-307.3)
[2023-06-02] MEDS: NORCO, ANEXSIA 5/325MG TABLET (HYDROcodone/ACETAMINOPHEN) PO PRN ×2 (04:07→14:30)
[2023-06-02 05:46] VITALS: BP 145/87; TEMP 97.4; O2SAT 98
[2023-06-02] MEDS: INSULIN LISPRO (NovoLOG) PER UNIT SC SCH ×4 (07:45→20:56)
[2023-06-02] MEDS: GABAPENTIN 300 MG CAP PO SCH ×3 (07:45→20:55)
[2023-06-02] MEDS: OMEPRAZOLE 20MG CAP PO SCH (07:46)
[2023-06-02] MEDS: oxyCODONE 5MG TAB PO SCH ×3 (07:46→20:54)
[2023-06-02 08:45] LABS: HEMATOCRIT 27.7 % (42.0-52.0); HEMOGLOBIN 8.3 g/dl (13.5-17.5); MEAN CORPUSCULAR HEMOGLOBIN 23.2 pg (27.0-33.0); MEAN CORPUSCULAR VOLUME 77.6 fl (80.0-96.0); PLATELET COUNT, AUTOMATED 483 10^3/uL (150-450); RED BLOOD COUNT 3.57 10^6/uL (4.30-6.10); WHITE BLOOD COUNT 6.2 10^3/uL (4.0-10.0)
[2023-06-02 08:51] LABS: ERYTHROCYTE SEDIMENTATION RATE 124 mm/hr (0-15)
[2023-06-02 08:58] LABS: VANCOMYCIN LEVEL TROUGH 17.4 UG/ML (10.0-20.0)
[2023-06-02 08:59] LABS: BLOOD UREA NITROGEN 9 MG/DL (9-23); CALCIUM LEVEL 8.2 MG/DL (8.5-10.1); CARBON DIOXIDE LEVEL 32 MMOL/L (20-31); CHLORIDE LEVEL 106 MMOL/L (98-107); CREATININE FOR GFR 0.63 MG/DL (0.70-1.30); GLOMERULAR FILTRATION RATE > 60.0 (>60); GLUCOSE, FASTING 108 MG/DL (60-100); POTASSIUM SERUM 4.5 MMOL/L (3.5-5.1); SODIUM LEVEL 142 MMOL/L (136-145)
[2023-06-02] MEDS: LIDOCAINE 5% (LIDODERM) PATCH TD SCH ×2 (09:00)
[2023-06-02 09:08] LABS: EOSINOPHILS 2 % (0-3); LYMPHOCYTES 39 % (16-44); MONOCYTES 2 % (0-5); NEUTROPHILS 57 % (28-66)
[2023-06-02 09:11] LABS: ANISOCYTOSIS 1+; MICROCYTOSIS 1+; PLATELET CLUMPS SMALL AMT; PLATELET ESTIMATE INCREASED (NORMAL)
[2023-06-02] MEDS: VANCOMYCIN HCL 750 MG, VIAL MATE ADAPTER 1 EACH in D5W 250 ML IV SCH ×2 (09:13→20:56)
[2023-06-02 09:14] LABS: HYPOCHROMASIA 1+; POIKILOCYTOSIS 1+
[2023-06-02] MEDS ORDERED: NORCO, ANEXSIA 5/325MG TABLET (HYDROcodone/ACETAMINOPHEN) PO ONE (10:00)
[2023-06-02] MEDS ORDERED: KETOROLAC 30 MG/ML 1ML VIAL IV ONE (10:00)
[2023-06-02] MEDS: VANCOMYCIN HCL 500 MG in D5W MINI-BAG PLUS 100 ML IV SCH ×2 (10:25→22:13)
[2023-06-02 14:16] VITALS: BP 121/72; TEMP 97.5; O2SAT 98
[2023-06-02 19:59] VITALS: BP 123/77; TEMP 97.5; O2SAT 100
[2023-06-03] MEDS: NORCO, ANEXSIA 5/325MG TABLET (HYDROcodone/ACETAMINOPHEN) PO PRN ×3 (01:56→11:26)
[2023-06-03 06:09] VITALS: BP 135/86; TEMP 97.9; O2SAT 99
[2023-06-03] MEDS: INSULIN LISPRO (NovoLOG) PER UNIT SC SCH ×4 (07:30→20:42)
[2023-06-03 08:02] LABS: HEMATOCRIT 26.1 % (42.0-52.0); HEMOGLOBIN 7.8 g/dl (13.5-17.5); MEAN CORPUSCULAR HEMOGLOBIN 23.1 pg (27.0-33.0); MEAN CORPUSCULAR HGB CONC 29.9 g/dl (32.0-36.5); MEAN CORPUSCULAR VOLUME 77.4 fl (80.0-96.0); PLATELET COUNT, AUTOMATED 406 10^3/uL (150-450); RED BLOOD COUNT 3.37 10^6/uL (4.30-6.10); WHITE BLOOD COUNT 6.8 10^3/uL (4.0-10.0)
[2023-06-03] MEDS: GABAPENTIN 300 MG CAP PO SCH ×3 (08:05→19:51)
[2023-06-03] MEDS: OMEPRAZOLE 20MG CAP PO SCH (08:05)
[2023-06-03] MEDS: oxyCODONE 5MG TAB PO SCH ×3 (08:06→19:51)
[2023-06-03 08:29] LABS: BLOOD UREA NITROGEN 12 MG/DL (9-23); CALCIUM LEVEL 8.2 MG/DL (8.5-10.1); CARBON DIOXIDE LEVEL 32 MMOL/L (20-31); CHLORIDE LEVEL 105 MMOL/L (98-107); CREATININE FOR GFR 0.71 MG/DL (0.70-1.30); GLOMERULAR FILTRATION RATE > 60.0 (>60); GLUCOSE, FASTING 97 MG/DL (60-100); POTASSIUM SERUM 4.7 MMOL/L (3.5-5.1); SODIUM LEVEL 142 MMOL/L (136-145)
[2023-06-03 08:31] LABS: ATYPICAL LYMPH 20 % (0-5); EOSINOPHILS 4 % (0-3); LYMPHOCYTES 30 % (16-44); MONOCYTES 5 % (0-5); NEUTROPHILS 41 % (28-66); PLATELET ESTIMATE INCREASED (NORMAL)
[2023-06-03 08:32] LABS: HYPOCHROMASIA 2+
[2023-06-03] MEDS: VANCOMYCIN HCL 750 MG, VIAL MATE ADAPTER 1 EACH in D5W 250 ML IV SCH (08:50)
[2023-06-03] MEDS: LIDOCAINE 5% (LIDODERM) PATCH TD SCH ×2 (09:00)
[2023-06-03] MEDS: VANCOMYCIN HCL 500 MG in D5W MINI-BAG PLUS 100 ML IV SCH (10:03)
[2023-06-03 14:56] VITALS: BP 135/72; TEMP 97.9; O2SAT 98
[2023-06-03] MEDS: LINEZOLID 600MG TABLET (ZYVOX) PO SCH (19:51)
[2023-06-03 20:43] VITALS: BP 138/74; TEMP 97.7; O2SAT 98
[2023-06-04] MEDS: NORCO, ANEXSIA 5/325MG TABLET (HYDROcodone/ACETAMINOPHEN) PO PRN ×3 (02:11→13:55)
[2023-06-04 05:03] VITALS: BP 140/81; TEMP 97.9; O2SAT 98
[2023-06-04 06:09] LABS: BASO % 0.2 % (0.0-1.0); EOS # 0.4 10^3/uL (0.0-0.5); EOS % 4.8 % (0.0-3.0); HEMATOCRIT 27.3 % (42.0-52.0); HEMOGLOBIN 8.2 g/dl (13.5-17.5); LYMPH # 2.9 10^3/uL (1.5-5.0); LYMPH % 34.4 % (24.0-44.0); MEAN CORPUSCULAR HEMOGLOBIN 23.1 pg (27.0-33.0); MEAN CORPUSCULAR VOLUME 76.9 fl (80.0-96.0); MONO # 0.5 10^3/uL (0.0-0.8); MONO % 6.3 % (2.0-8.0); NEUTROPHILS # 4.6 10^3/uL (1.5-8.5); NEUTROPHILS % 53.6 % (36.0-66.0); PLATELET COUNT, AUTOMATED 468 10^3/uL (150-450); RED BLOOD COUNT 3.55 10^6/uL (4.30-6.10); WHITE BLOOD COUNT 8.5 10^3/uL (4.0-10.0)
[2023-06-04 06:26] LABS: BLOOD UREA NITROGEN 11 MG/DL (9-23); CALCIUM LEVEL 8.6 MG/DL (8.5-10.1); CARBON DIOXIDE LEVEL 31 MMOL/L (20-31); CHLORIDE LEVEL 103 MMOL/L (98-107); CREATININE FOR GFR 0.71 MG/DL (0.70-1.30); GLOMERULAR FILTRATION RATE > 60.0 (>60); GLUCOSE, FASTING 93 MG/DL (60-100); POTASSIUM SERUM 4.8 MMOL/L (3.5-5.1); SODIUM LEVEL 141 MMOL/L (136-145)
[2023-06-04] MEDS: INSULIN LISPRO (NovoLOG) PER UNIT SC SCH ×2 (07:30→11:48)
[2023-06-04] MEDS: LIDOCAINE 5% (LIDODERM) PATCH TD SCH ×2 (09:00)
[2023-06-04] MEDS ORDERED: LINE1TAB6 PO (09:23)
[2023-06-04] MEDS: OMEPRAZOLE 20MG CAP PO SCH (09:45)
[2023-06-04] MEDS: LINEZOLID 600MG TABLET (ZYVOX) PO SCH (09:45)
[2023-06-04] MEDS: GABAPENTIN 300 MG CAP PO SCH (09:45)
[2023-06-04] MEDS: oxyCODONE 5MG TAB PO SCH (09:46)
== END 2023-06-04 17:05 | disposition home or self-care (01) | DRG 638 ==
LOC: M ED 19:04 → M ED INP 23:11 → ENRESERV 23:55 → M MS5PR 06-01 01:20
PROVIDERS: ADMIT Internal Medicine; ATTEND Student in an Organized Health Care Education/Training Program
PROC: 30233N1 Transfusion of Nonautologous Red Blood Cells into Peripheral Vein, Percutaneous Approach (ICD-10-PCS; principal; 2023-06-01)
PROC: 0Y9L0ZZ Drainage of Left Ankle Region, Open Approach (ICD-10-PCS; 2023-06-01)
DX: E11.621 Type 2 diabetes mellitus with foot ulcer (principal); L02.416 Cutaneous abscess of left lower limb; L97.329 Non-pressure chronic ulcer of left ankle with unspecified severity; M86.672 Other chronic osteomyelitis, left ankle and foot; E87.20 Acidosis, unspecified; E11.618 Type 2 diabetes mellitus with other diabetic arthropathy; K21.9 Gastro-esophageal reflux disease without esophagitis; I10 Essential (primary) hypertension; E11.42 Type 2 diabetes mellitus with diabetic polyneuropathy; D63.8 Anemia in other chronic diseases classified elsewhere; Z79.84 Long term (current) use of oral hypoglycemic drugs; Z79.890 Hormone replacement therapy; Z79.899 Other long term (current) drug therapy; Z88.1 Allergy status to other antibiotic agents; Z20.822 Contact with and (suspected) exposure to COVID-19